=== PATIENT | male | born 1970 | race Caucasian/White ===

== ENCOUNTER 2016-08-23 07:45 | Outpatient (CLI) | payer BC, OTHER | END 2016-08-23 07:46 | disposition home or self-care (01) | DX: K70.30 Alcoholic cirrhosis of liver without ascites (principal); K90.0 Celiac disease; I85.00 Esophageal varices without bleeding ==

== ENCOUNTER 2018-05-16 08:23 | Outpatient (CLI) | payer OTHER ==
--- NOTE | 2018-05-16 09:12 | Ultrasound Report ---
Reason: CELIAC SPRUE,ESOPHAGEAL VARICES,CIRRHOSIS ALCOHOL Procedure Date: 05/16/2018 Accession Number: [id number] / [id number] Procedure: US - Abdomen Limited CPT Code: FULL RESULT: EXAM: ABDOMEN ULTRASOUND LIMITED, RUQ EXAM DATE: 05/16/2018 08:58 AM. CLINICAL HISTORY: CELIAC Sprue, esophageal Varices, cirrhosis ALCOHOL. COMPARISON: None. TECHNIQUE: Real-time scanning was performed with static images obtained. FINDINGS: Liver: The liver is moderately and diffusely echogenic with a coarsened echotexture. Normal contour. No masses. 14.8 cm. Main portal vein flow: Hepatopetal. No ascites. Gallbladder: Limited gallbladder appears unremarkable. Biliary System: CBD measures 2 mm. No intrahepatic or extrahepatic ductal dilatation. Limited right kidney is unremarkable. The pancreas is not evaluated. IMPRESSION: Moderate hepatic steatosis. Coarsened liver echotexture may be on the basis of cirrhosis. Correlate clinically. RADIA
== END 2018-05-16 08:24 | disposition home or self-care (01) ==
LOC: DI 08:23
PROVIDERS: ATTEND Internal Medicine
DX: K90.0 Celiac disease (principal); I85.00 Esophageal varices without bleeding; K70.30 Alcoholic cirrhosis of liver without ascites; K76.0 Fatty (change of) liver, not elsewhere classified
CPT/HCPCS: 76705

== ENCOUNTER 2019-07-17 08:38 | Outpatient (CLI) | payer OTHER ==
--- NOTE | 2019-07-18 08:15 | Ultrasound Report ---
Reason: CIRRHOSIS ALCOHOLIC Procedure Date: 07/17/2019 Accession Number: [id number] / [id number] Procedure: US - Abdomen Limited CPT Code: Final Report FULL RESULT: EXAM: ABDOMEN ULTRASOUND LIMITED, RIGHT UPPER QUADRANT EXAM DATE: 07/17/2019 09:13 AM. CLINICAL HISTORY: Cirrhosis alcoholic. COMPARISON: ABDOMEN LIMITED 05/16/2018 8:30 AM. TECHNIQUE: Real-time scanning was performed with static images obtained. FINDINGS: Liver: Liver parenchyma is heterogeneous and mild to moderately hyperechoic. No discrete liver masses or intrahepatic bile duct dilation. However, evaluation for masses is limited secondary to the echogenicity. Recanalized umbilical vein not seen on the current study. Right liver su[place]27.1 cm. Main portal vein flow: Hepatopetal. Gallbladder: Normal. No stones, wall thickening, or sonographic Pinon's sign. Biliary System: CBD measures 2.5 mm. No intrahepatic or extrahepatic ductal dilatation. Right kidney: 11.8 cm. No hydronephrosis. Other: None. IMPRESSION: 1. Nonspecific coarse echotexture of the liver parenchyma may be related to the history of cirrhosis. Mild to moderately echogenic parenchyma is nonspecific but could be secondary to fatty infiltration. No mass or intrahepatic bile duct dilation. 2. Normal gallbladder and common bile duct. RADIA
== END 2019-07-17 08:39 | disposition home or self-care (01) ==
LOC: DI 08:38
PROVIDERS: ATTEND Internal Medicine
DX: K70.30 Alcoholic cirrhosis of liver without ascites (principal)
CPT/HCPCS: 76705

== ENCOUNTER 2022-09-14 07:05 | Outpatient (CLI) | payer OTHER ==
--- NOTE | 2022-09-14 16:02 | Ultrasound Report ---
PROCEDURE: Abdomen Limited INDICATIONS: ALCOHOLIC CIRRHOSIS TECHNIQUE: Real-time focused scanning was performed of the abdomen, with image documentation. COMPARISON: Ultrasound abdomen limited, 07/17/2019 FINDINGS: Liver: Liver is normal in size and demonstrates coarse and increased echotexture consistent with cir rhosis. No focal hepatic mass. Portal vein is at the upper limits of normal in size and demonstrates hepatopedal flow. Gallbladder: The gallbladder is normal. No gallstones, gallbladder wall thickening, pericholecystic f luid collection or no sonographic Pinon sign. Biliary ducts: Intrahepatic bile ducts are non-dilated. Extrahepatic bile duct caliber measures 2.9 mm. Normal is 6-7 mm or less in diameter, or 10 mm or less post-cholecystectomy. Pancreas: Visualized portions of the pancreas are sonographically normal. Right kidney: Right kidney measures 10.5 cm long. No hydronephrosis. No solid masses. Miscellaneous: No free abdominal fluid. IMPRESSION: 1. Cirrhotic liver. 2. Prominent portal vein with hepatopedal flow. Reviewed by: Sourav Ly MD on 09/14/2022 4:00 PM PST Approved by: Sourav Ly MD on 09/14/2022 4:00 PM PST Station ID: [id number]
== END 2022-09-14 07:06 | disposition home or self-care (01) ==
LOC: DI 07:05
PROVIDERS: ATTEND Internal Medicine Gastroenterology
DX: K70.30 Alcoholic cirrhosis of liver without ascites (principal)